=== PATIENT | female | born 1950 | race Caucasian/White ===

== ENCOUNTER → 2020-11-25 | Outpatient (CLI) | payer MEDICARE, OTHER ==
[~2020-11-25] MED LIST: ASPI325; Cvs Glucosamin1 EAC2; LEVSOD125; LISHYD1012; Omeprazole20 M1; SERT50; SITA100T2; Simvastatin40 MG
[2020-11-25 16:48] LABS: Appearance, Urine Cloudy (Clear); Bilirubin, Urine Neg (Neg); Blood, Urine 4+ (Neg); Color, Urine Yellow (P-Yellow); Glucose Qualitative, Urine Neg (Neg); Ketones, Urine Neg (Neg); Leukocyte Esterase, Urine 3+ (Neg); Nitrite, Urine Neg (Neg); Protein, Urine 1+ (Neg); Urobilinogen, Urine NORM (Normal)
[2020-11-25 17:16] LABS: Creatinine, Urine Random 29.6 mg/dL (27.00-270.00); Protein, Urine Random 14.4 mg/dL (0.0-11.9); Protein/Creat Ratio, Ur Random 0.5
[2020-11-25 17:22] LABS: White Blood Cells, Urine TNTC /hpf (0-5)
[2020-11-25 17:23] LABS: Bacteria Many /hpf; Squamous Epithelial Cells Few /hpf (Few)
== END ==
LOC: LAB SHORT 12:45 → LAB 12:45
PROVIDERS: Internal Medicine
DX: N18.32 Chronic kidney disease, stage 3b (principal); R39.89 Other symptoms and signs involving the genitourinary system
CPT/HCPCS: 81001; 82570; 84156; 87077; 87086; 87186

== ENCOUNTER 2021-11-28 11:56 | Day surgery (SDC) | payer MEDICARE, OTHER ==
[~2021-11-28] VITALS: Ht 170.2 cm; Wt 84.4 kg
[2021-11-28] MEDS ORDERED: Amlodipine Bes2.5 MG (13:02)
[2021-11-28] MEDS ORDERED: Vitamin C100 M1 (13:03)
[2021-11-28] MEDS ORDERED: Vitamin D1000 UNI1 (13:04)
[2021-11-28] MEDS ORDERED: Isosorbide Mono30 MG (13:05)
== END 2021-11-28 14:52 | disposition home or self-care (01) ==
LOC: ORSCSDS 11:56
PROVIDERS: Internal Medicine Gastroenterology
PROC: 0DJD8ZZ Inspection of Lower Intestinal Tract, Via Natural or Artificial Opening Endoscopic (ICD-10-PCS; principal; 2021-11-28 14:45)
DX: Z12.11 Encounter for screening for malignant neoplasm of colon (principal); Z86.010 Personal history of colon polyps; K57.30 Diverticulosis of large intestine without perforation or abscess without bleeding; I12.9 Hypertensive chronic kidney disease with stage 1 through stage 4 chronic kidney disease, or unspecified chronic kidney disease; E78.5 Hyperlipidemia, unspecified; E11.9 Type 2 diabetes mellitus without complications; F32.A Depression, unspecified; Z87.891 Personal history of nicotine dependence; Z79.82 Long term (current) use of aspirin; Z79.899 Other long term (current) drug therapy
CPT/HCPCS: 82947; J0330; J0461; J2405; J2704; J7120

== ENCOUNTER 2024-03-26 06:13 | Day surgery (SDC) | payer MEDICARE, OTHER ==
[~2024-03-26] VITALS: Ht 170.2 cm; Wt 81.8 kg
[~2024-03-26 06:13] MED LIST changes: +ASCO500 PO; +Amlodipine Bes2.5 MG; +Aspir 8181 MG PO; +Balanced Salt Epinephrine Irrigation Solution 500 mL IR SCH; +COLLAGEN 15001 EACH PO; +EUTHYROX88 MCG PO; +FAMO20 PO; +Imdur60 MG PO; +Isosorbide Mono30 MG; +LISI5 PO; +Lidocaine HCl/Pf 1% 5 ML VIAL XX SCH; +Moxifloxacin HCL 0.5 MG/0.1 ML 0.4MLSYR LEFTEYE SCH; +NS 500 ML IV ONE; +PHENYLEPHRINE\\TROPICAMIDE\\TETRACAINE OPHTHALMIC DILATING SOLN LEFTEYE PRN; +PRENATAL TABLE1 EAC2 PO; +PROBIOTIC1 EA13 PO; +Povidone-Iodine 450 DROP/30 ML Solution LEFTEYE SCH; +SIMV40 PO; +SITA100T2 PO; +Triamcinolone Inj Susp 40 MG / ML 1ML Vial INJ SCH; +VITAMIN D325 MC3 PO; +Vitamin C100 M1; +Vitamin D1000 UNI1
[2024-03-26] MEDS ORDERED: Triamcinolone Inj Susp 40 MG / ML 1ML Vial ONE (06:46)
[2024-03-26] MEDS ORDERED: Lidocaine HCl/Pf 1% 5 ML VIAL ONE (06:46)
[2024-03-26] MEDS ORDERED: Midazolam HCl 1MG / ML 2ML Vial ONE (06:58)
[2024-03-26] MEDS ORDERED: FentaNYL Citrate 50 MCG/ML 2 ML Injection ONE (06:58)
[2024-03-26] MEDS ORDERED: NS 500 ML IV ONE (06:59)
--- NOTE | 2024-03-26 09:25 | NUR ---
03/26/24 0925 Steven Jaeger PT INSTRUCTED TO MONITOR B/P AT HOME, AND FOLLOW UP WITH PCP IF NEEDED.
[2024-03-26 09:26] VITALS: BP 133/67
== END 2024-03-26 08:08 | disposition home or self-care (01) ==
LOC: ORSCSDS 06:13
PROVIDERS: Ophthalmology
PROC: 08RK3JZ Replacement of Left Lens with Synthetic Substitute, Percutaneous Approach (ICD-10-PCS; principal; 2024-03-26 07:30)
DX: E11.36 Type 2 diabetes mellitus with diabetic cataract (principal); H25.812 Combined forms of age-related cataract, left eye; Z96.1 Presence of intraocular lens; Z87.891 Personal history of nicotine dependence; E11.22 Type 2 diabetes mellitus with diabetic chronic kidney disease; I12.9 Hypertensive chronic kidney disease with stage 1 through stage 4 chronic kidney disease, or unspecified chronic kidney disease; N18.9 Chronic kidney disease, unspecified; E03.9 Hypothyroidism, unspecified; E78.5 Hyperlipidemia, unspecified; K21.9 Gastro-esophageal reflux disease without esophagitis; Z79.899 Other long term (current) drug therapy
CPT/HCPCS: 82947; J2001; J2250; J3010; J3301; J7040; V2632